=== PATIENT | female | born 1945 | race Caucasian/White ===

== ENCOUNTER 2017-05-23 16:30 | Emergency (ER) | payer MEDICARE, MEDICAID ==
[2017-05-23] MEDS ORDERED: Morphine 2 MG/ML Syringe SUBCUT ONE (16:56)
[2017-05-23] MEDS ORDERED: Morphine 10 MG/ML Syringe ONE (17:03)
[2017-05-23] MEDS ORDERED: Enoxaparin 80 MG/0.8 ML Syringe ONE (18:16)
[2017-05-23 18:40] VITALS: BP 140/90
--- NOTE | 2017-05-24 08:35 | EDM.PDOC ---
ED HPI GENERAL MEDICAL PROBLEM - General Chief Complaint: Chest Pain Stated Complaint: chest pain Time Seen by Provider: 05/23/17 16:30 Source of Information: Reports: Long Term Records, RN, Significant Other, Other ([facility], [place] staff) History Limitations: Reports: Language Barrier, Physical Impairment. Denies: Altered Mental Status - History of Present Illness INITIAL COMMENTS - FREE TEXT/NARRATIVE: This 72 yr female presents with Iraidast[employer] scientist from [facility]. Staff states pt became anxious around 3:30. Pt was given oxycodone and Maalox to comfort pt. Pt pointing and nodding head to pain to left chest and to left leg. She has a hx of left sided affected CVA and she doesn't speak, but can nod in agreement. She is breathing rapidly and appears anxious, intermittently. Consulted with Dr Quintana at 1715. Reviewed results of EKG and symptoms with chest pain and anxiety and right leg pain. Order for MS 4 mg Sq. 1740 Reviewed lab results with Dr Quintana. Order for angio CT for possible r/o PE. Staff unable to get #18 IV in for administration of contrast. Order cancelled. Order for bilateral doppler U/A of lower legs. Begin Lovenox 80 mg sq bid. Recommend use of heat to chest 3x/day for costochondritis. present in ER and results reviewed with him and reviewed pt symptoms. in agreement to plan of care. 1800 Transfer pt to [facility] for continued care in home environment. Continue present medications. Onset: Today Onset Date: 05/23/17 Onset Time: 15:30 Duration: Getting Worse, Intermittent Location: Reports: Chest, Lower Extremity, Right Quality: Reports: Other (Unable to differentiate description of pain related to pt, unable to communicate in words) Improves with: Reports: Medication Associated Symptoms: Denies: Fever/Chills, Nausea/Vomiting, Rash Treatments MANAGER OF COMPENSATION: Reports: Other Medication(s) - Related Data Allergies Allergy/AdvReac Type Severity Reaction Status Date / Time No Known Allergies Allergy Verified 02/14/16 00:41 Home Meds: Home Meds Docusate Sodium [Silace] 25 ml NGTUBE BID 02/14/16 [History] Esomeprazole [NexIUM] 40 mg NGTUBE ONETIME 02/14/16 [History] FLUoxetine HCl [Fluoxetine HCl] 40 mg NGTUBE DAILY 02/14/16 [History] Furosemide 40 ng PO DAILY 02/14/16 [History] Gabapentin 200 mg PO BID 02/14/16 [History] Gabapentin 400 mg NGTUBE BEDTIME 02/14/16 [History] LORazepam [Ativan] 0.5 mg NGTUBE TID 02/14/16 [History] Melatonin 3 mg NGTUBE BEDTIME 02/14/16 [History] OLANZapine [Zyprexa] 20 mg NGTUBE DAILY 02/14/16 [History] Penicillin V Potassium 500 mg NGTUBE BID 02/14/16 [History] Potassium Chloride 20 meq NGTUBE DAILY 02/14/16 [History] Sulfamethoxazole/Trimethoprim [Sulfamethoxazole-Tmp Ds Tablet] 1 tab NGTUBE BID 02/14/16 [History] Vitamin A 10,000 units NGTUBE DAILY 02/14/16 [History] fentaNYL [Duragesic] 75 mcg TRDERM Q72H 02/14/16 [History] oxyCODONE 10 mg NGTUBE Q4H PRN 02/14/16 [History] rOPINIRole [Requip] 2 mg NGTUBE TID 02/14/16 [History] Past Medical History Respiratory History: Reports: Pneumonia, Recurrent Gastrointestinal History: Reports: None Genitourinary History: Reports: Chronic Renal Insuffiency, UTI, Recurrent, Other (See Below) Other Genitourinary History: aguilar catheter in place Neurological History: Reports: CVA - Past Surgical History GI Surgical History: Reports: Other (See Below) Social & Family History - Tobacco Use Smoking Status *Q: Never Smoker Used Tobacco, but Quit: No Second Hand Smoke Exposure: No - Recreational Drug Use Recreational Drug Use: No ED ROS GENERAL - Review of Systems Review Of Systems: See Below Constitutional: Reports: Fever, Chills Cardiovascular: Reports: Chest Pain GI/Abdominal: Reports: No Symptoms : Reports: Other (aguilar catheter) Musculoskeletal: Reports: Leg Pain, Muscle Pain, Other (bedridden) Skin: Reports: Other (Skin is warm and moist with perspiration to under arms). Denies: Diaphoresis, Erythema, Change in Color Neurological: Reports: Pre-Existing Deficit, Trouble Speaking, Weakness Psychiatric: Reports: Anxiety ED EXAM, GENERAL - Physical Exam Exam: See Below Exam Limited By: No Limitations General Appearance: Alert, No Apparent Distress, Anxious, Mild Distress Ears: Normal External Exam Nose: Normal Inspection Head: Atraumatic Neck: Supple, Non-Tender Respiratory/Chest: Normal Breath Sounds, Other (Tachypneic, pain to 3rd and 4th left intercostal space with deep palpation). No: Crackles, Rales Cardiovascular: Tachycardia, Extra Beats GI/Abdominal: Soft Extremities: Limited Range of Motion, Other (posturing with bedridden) Neurological: Alert Psychiatric: Anxious Skin Exam: Warm, Normal Color. No: Diaphoretic EKG INTERPRETATION EKG Date: 05/23/17 Rhythm: Other (sinus tachycardia with PAC.) Rate (Beats/Min): 120 Comparison: NA - No Prior EKG EKG Interpretation Comments: Initial report shows anterolateral infarct. Reviewed EKG with Dr Quintana. States no ST elevation to anterior leads. States pain is related to costochondritis. Course - Vital Signs Last Recorded V/S: Last Vital Signs Temp 98 F 05/23/17 17:15 Pulse 110 H 05/23/17 17:15 Resp 16 05/23/17 17:15 BP 140/90 05/23/17 17:15 Pulse Ox 100 05/23/17 17:00 - Orders/Labs/Meds Orders: Active Orders 24 hr Category Date Time Status EKG Documentation Completion [RC] ASDIRECTED Care 05/23/17 16:40 Active Oxygen Therapy [RC] ASDIRECTED Care 05/23/17 16:30 Active Ready for Discharge [RC] PER UNIT ROUTINE Care 05/23/17 18:00 Active Labs: Laboratory Tests 05/23/17 05/23/17 05/23/17 Range/Units 16:50 16:50 16:50 WBC 6.6 (4.0-11.0) K/uL RBC 4.69 (3.80-5.80) M/uL Hgb 13.2 (11.5-16.5) g/dL Hct 40.3 (37.0-47.0) % MCV 86 (76-96) fL MCH 28.1 (27.0-32.0) pg MCHC 32.8 (31.0-35.0) g/dL RDW 13.2 (11.0-16.0) % Plt Count 352 D (150-500) K/uL MPV 9.3 (6.0-10.0) fL Neut % (Auto) 82.8 H (45.0-70.0) % Lymph % (Auto) 8.9 L (20.0-40.0) % Clare % (Auto) 8.3 (3.0-10.0) % Eos % (Auto) 0.0 L (1.0-5.0) % Baso % (Auto) 0.0 (0.0-0.5) % Neut # (Auto) 5.46 (2.00-7.50) K/uL Lymph # (Auto) 0.59 L (1.50-4.00) K/uL Clare # (Auto) 0.55 (0.20-0.80) K/uL Eos # (Auto) 0.00 L (0.04-0.40) K/uL Baso # (Auto) 0.00 L (0.02-0.10) K/uL PT (9.0-11.5) sec INR (1.0-3.5) APTT (27.0-35.0) SECONDS D-Dimer, Quantitative (0-400) ng/mL Sodium 139 (136-145) mmol/L Potassium 3.8 (3.5-5.1) mmol/L Chloride 101 (98-107) mmol/L Carbon Dioxide 27.8 (21.0-32.0) mmol/L Anion Gap 14.0 (5.0-15.0) mmol/L BUN 46 H D (8-26) mg/dL Creatinine 1.07 H (0.55-1.02) mg/dL Est Cr Clr Drug Dosing TNP Estimated GFR (MDRD) 50 L (>60) MLS/MIN BUN/Creatinine Ratio 43.0 H (6-25) Glucose 207 H D (74-100) mg/dL Calcium 9.3 (8.5-10.1) mg/dL Total Bilirubin 0.4 D (0.0-1.0) mg/dL AST 17 (15-37) U/L ALT 7 L (12-78) U/L Alkaline Phosphatase 141 H (46-116) U/L Troponin I 0.032 (0.000-0.060) ng/mL Total Protein 8.4 H (6.4-8.2) g/dL Albumin 2.8 L (3.4-5.0) g/dL Globulin 5.6 H (2.2-4.2) g/dL Albumin/Globulin Ratio 0.5 L (0.8-2.0) 05/23/17 05/23/17 Range/Units 16:50 16:55 WBC (4.0-11.0) K/uL RBC (3.80-5.80) M/uL Hgb (11.5-16.5) g/dL Hct (37.0-47.0) % MCV (76-96) fL MCH (27.0-32.0) pg MCHC (31.0-35.0) g/dL RDW (11.0-16.0) % Plt Count (150-500) K/uL MPV (6.0-10.0) fL Neut % (Auto) (45.0-70.0) % Lymph % (Auto) (20.0-40.0) % Clare % (Auto) (3.0-10.0) % Eos % (Auto) (1.0-5.0) % Baso % (Auto) (0.0-0.5) % Neut # (Auto) (2.00-7.50) K/uL Lymph # (Auto) (1.50-4.00) K/uL Clare # (Auto) (0.20-0.80) K/uL Eos # (Auto) (0.04-0.40) K/uL Baso # (Auto) (0.02-0.10) K/uL PT 9.5 D (9.0-11.5) sec INR 1.0 D (1.0-3.5) APTT 29.0 (27.0-35.0) SECONDS D-Dimer, Quantitative 2550 H (0-400) ng/mL Sodium (136-145) mmol/L Potassium (3.5-5.1) mmol/L Chloride (98-107) mmol/L Carbon Dioxide (21.0-32.0) mmol/L Anion Gap (5.0-15.0) mmol/L BUN (8-26) mg/dL Creatinine (0.55-1.02) mg/dL Est Cr Clr Drug Dosing Estimated GFR (MDRD) (>60) MLS/MIN BUN/Creatinine Ratio (6-25) Glucose (74-100) mg/dL Calcium (8.5-10.1) mg/dL Total Bilirubin (0.0-1.0) mg/dL AST (15-37) U/L ALT (12-78) U/L Alkaline Phosphatase (46-116) U/L Troponin I (0.000-0.060) ng/mL Total Protein (6.4-8.2) g/dL Albumin (3.4-5.0) g/dL Globulin (2.2-4.2) g/dL Albumin/Globulin Ratio (0.8-2.0) Meds: Medications Discontinued Medications Generic Name Dose Route Start Last Admin Trade Name Freq PRN Reason Stop Dose Admin Enoxaparin Sodium Confirm 05/23/17 18:16 05/23/17 18:25 Lovenox Administered 05/23/17 18:17 Not Given Dose 80 mg .ROUTE .STK-MED ONE Morphine Sulfate 4 mg 05/23/17 16:56 05/23/17 18:26 Morphine SUBCUT 05/23/17 16:57 4 mg ONETIME ONE Administration Morphine Sulfate Confirm 05/23/17 17:03 Morphine Administered 05/23/17 17:04 Dose 10 mg .ROUTE .STK-MED ONE - Re-Assessments/Exams Free Text/Narrative Re-Assessment/Exam: EKG and labs completed and reviewed with . Ordered angio-CT to rule out PE. Unable to obtain #18 IC to antecubital for this. Will obtain bilateral, lower extremity U/S, doppler to differentiate possible DVT as D-dimer is elevated. Will start Lovenox Sq bid. Orders place in moth exterminator care chart for this. MS 4 mg sq for pt pain and anxiety given with relief noted and pt resting well. states understanding and is in agreement with plan of care. 05/24/17 08:47 Departure - Departure Time of Disposition: 18:00 Disposition: DC/Tfer to SNF 03 Reason for Transfer *Q: Other (transfer to fpc care facility/pt home) Condition: Fair Clinical Impression: Acute costochondritis, Atypical chest pain Instructions: Costochondritis, [id number], How and Where to Give Subcutaneous Enoxaparin Injections, Deep Vein Thrombosis Referrals: PCP,Unknown [Primary Care Provider] - Forms: ED Department Discharge Care Plan Goals: Since unable to do a CT angiogram due to inability to access a vein she will get Lovenox 80 mg bid. Schedule for lower extremity doppler study on . 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
== END 2017-05-23 18:20 ==
LOC: LB.ED 16:30
DX: M94.0 Chondrocostal junction syndrome [Tietze] (principal); R07.1 Chest pain on breathing; N18.9 Chronic kidney disease, unspecified; Z86.73 Personal history of transient ischemic attack (TIA), and cerebral infarction without residual deficits; Z79.84 Long term (current) use of oral hypoglycemic drugs; Z79.891 Long term (current) use of opiate analgesic; Z87.01 Personal history of pneumonia (recurrent); Z87.440 Personal history of urinary (tract) infections
CPT/HCPCS: 36415; 80053; 84484; 85025; 85379; 85610; 85730; 93005; 96372; 99284; J2270

== ENCOUNTER 2019-01-16 10:47 | Emergency (ER) | payer MEDICARE, MEDICAID ==
[2019-01-16 11:12] VITALS: BP 148/95
[2019-01-16] MEDS: diazePAM 5 MG/ML MDV IV ONE (11:27)
[2019-01-16] MEDS: diazePAM 5 MG/ML MDV ONE (11:58)
[2019-01-16] MEDS ORDERED: D5 1/2 NS w/ 10 mEq/L KCl 1,000 ML IV SCH (12:00)
--- NOTE | 2019-01-16 12:01 | EDM.PDOC ---
ED HPI GENERAL MEDICAL PROBLEM - General Chief Complaint: General Stated Complaint: Muscle Cramps Time Seen by Provider: 01/16/19 11:00 Source of Information: Reports: Patient History Limitations: Reports: No Limitations - History of Present Illness INITIAL COMMENTS - FREE TEXT/NARRATIVE: This is a 73yo F here for muscle spasms of the right side. She states her left groin and hip area are extremely painful from cramping. She has left elbow and forearm pain and cramping as well. The cramping started today and has worsened. Onset: Gradual Duration: Hour(s):, Getting Worse Location: Reports: Upper Extremity, Right, Lower Extremity, Right Quality: Reports: Ache Severity: Severe Improves with: Reports: None Worsens with: Reports: Movement Treatments AUTOMATIC CIGAR WRAPPER TENDER: Reports: Other (see below) Other Treatments AUTOMATIC CIGAR WRAPPER TENDER: oxycodone; patch change today - Related Data Allergies Allergy/AdvReac Type Severity Reaction Status Date / Time latex Allergy Cannot Verified 01/16/19 11:54 Remember adhesive tape AdvReac Rash Verified 01/16/19 11:54 Home Meds: Home Meds FLUoxetine HCl [Fluoxetine HCl] 20 mg GTUBE DAILY 02/14/16 [History] Furosemide 40 mg GTUBE DAILY 02/14/16 [History] Gabapentin 4 ml GTUBE BID@0800,1200 02/14/16 [History] Gabapentin 8 ml GTUBE BEDTIME 02/14/16 [History] Melatonin 6 mg GTUBE BEDTIME 02/14/16 [History] Potassium Chloride 20 meq GTUBE DAILY 02/14/16 [History] Vitamin A 10,000 units GTUBE DAILY 02/14/16 [History] oxyCODONE 10 mg GTUBE Q4H PRN 02/14/16 [History] rOPINIRole [Requip] 2 mg GTUBE TID 02/14/16 [History] Acetaminophen [Tylenol] 650 mg GTUBE Q4HR PRN 10/19/18 [History] Albuterol/Ipratropium [DuoNeb 3.0-0.5 MG/3 ML] 3 ml INH Q6HR PRN 10/19/18 [ History] Guar Gum [Benefiber] 0.4 gm GTUBE DAILY@1800 10/19/18 [History] Lactulose 10 gm GTUBE TID 10/19/18 [History] Magnesium Hydroxide [Milk of Magnesia] 30 ml GTUBE DAILY PRN 10/19/18 [History] Mupirocin Cream [Bactroban Crm] 1 applic TOP TID 10/19/18 [History] Omeprazole 10 mg GTUBE ACBREAKFAST 10/19/18 [History] Polyethylene Glycol 3350 [MiraLAX] 17 gm GTUBE DAILY PRN 10/19/18 [History] Sennosides [Senokot] 8.6 mg GTUBE DAILY PRN 10/19/18 [History] fentaNYL [Duragesic] 100 mcg TOP Q72H 10/19/18 [History] oxyCODONE 10 mg GTUBE DAILY 10/19/18 [History] Past Medical History Cardiovascular History: Reports: Heart Failure, High Cholesterol, Hypertension Respiratory History: Reports: Asthma, Pneumonia, Recurrent Gastrointestinal History: Reports: Chronic Constipation, Gastritis, GERD Genitourinary History: Reports: Chronic Renal Insuffiency, UTI, Recurrent Other Genitourinary History: aguilar catheter in place Musculoskeletal History: Reports: Other (See Below) Other Musculoskeletal History: chronic pain Neurological History: Reports: CVA, TIA, Other (See Below) Other Neuro History: expressive aphasia Psychiatric History: Reports: Depression, Other (See Below) Other Psychiatric History: unspecified sleep disorder Dermatologic History: Reports: Decubitus Ulcer - Past Surgical History Respiratory Surgical History: Reports: None GI Surgical History: Reports: Other (See Below) Other GI Surgeries/Procedures: G-tibe placement Female Surgical History: Reports: None Neurological Surgical History: Reports: None Musculoskeletal Surgical History: Reports: None Dermatological Surgical History: Reports: None Social & Family History - Family History Family Medical History: Noncontributory - Caffeine Use Caffeine Use: Reports: None ED ROS GENERAL - Review of Systems Review Of Systems: ROS reveals no pertinent complaints other than HPI. ED EXAM, GENERAL - Physical Exam Exam: See Below Exam Limited By: No Limitations General Appearance: Alert, WD/WN, Moderate Distress Eye Exam: Bilateral Eye: EOMI, PERRL Ears: Normal External Exam Nose: Normal Inspection Throat/Mouth: Normal Inspection Head: Atraumatic, Normocephalic Neck: Normal Inspection Respiratory/Chest: No Respiratory Distress, Lungs Clear Cardiovascular: Normal Peripheral Pulses, Regular Rate, Rhythm Peripheral Pulses: 2+: Dorsalis Pedis (L), Dorsalis Pedis (R) GI/Abdominal: Normal Bowel Sounds Extremities: Normal Inspection Neurological: Alert, Oriented Psychiatric: Normal Affect, Normal Mood Skin Exam: Warm, Dry, Intact Course - Vital Signs Last Recorded V/S: Last Vital Signs Temp 37.5 C 01/16/19 10:55 Pulse 83 01/16/19 14:34 Resp 18 01/16/19 14:34 BP 148/95 H 01/16/19 10:55 Pulse Ox 93 L 01/16/19 14:34 - Orders/Labs/Meds Labs: Laboratory Tests 01/16/19 Range/Units 08:55 Magnesium 2.4 (1.8-2.4) mg/dL Meds: Medications Discontinued Medications Generic Name Dose Route Start Last Admin Trade Name Tomq PRN Reason Stop Dose Admin Diazepam Confirm 01/16/19 11:32 01/16/19 11:58 Valium Administered 01/16/19 11:33 Not Given Dose 5 mg .ROUTE .STK-MED ONE Diazepam 5 mg 01/16/19 11:51 01/16/19 11:27 Valium IV 01/16/19 11:52 5 mg ONETIME ONE Administration Hydromorphone HCl 1 mg 01/16/19 13:08 01/16/19 13:17 Dilaudid IVPUSH 01/16/19 13:09 1 mg ONETIME ONE Administration Hydromorphone HCl Confirm 01/16/19 13:23 01/16/19 13:21 Dilaudid Administered 01/16/19 13:24 Not Given Dose 2 mg .ROUTE .STK-MED ONE Potassium Chloride/Dextrose/Sod Cl 1,000 mls @ 150 mls/hr 01/16/19 12:00 D5 1/2 Ns W/ 10 Meq/L Kcl IV ASDIRECTED BELL Potassium Chloride/Dextrose/Sod Cl 1,000 mls @ 150 mls/hr 01/16/19 12:15 12:23 D5 1/2 Ns W/ 20 Meq/L Kcl IV 150 mls/hr ASDIRECTED BELL Administration Ketorolac Tromethamine 30 mg 01/16/19 12:00 01/16/19 12:02 Toradol IVPUSH 01/16/19 12:01 30 mg ONETIME ONE Administration Ketorolac Tromethamine Confirm 01/16/19 12:08 01/16/19 12:11 Toradol Administered 01/16/19 12:09 Not Given Dose 30 mg .ROUTE .STK-MED ONE Lorazepam 2 mg 01/16/19 14:03 01/16/19 14:07 Ativan IVPUSH 01/16/19 14:04 2 mg ONETIME ONE Administration Lorazepam Confirm 01/16/19 14:11 01/16/19 14:18 Ativan Administered 01/16/19 14:12 Not Given Dose 2 mg .ROUTE .STK-MED ONE Departure - Departure Time of Disposition: 14:30 Disposition: Home, Self-Care 01 Condition: Good Clinical Impression: Muscle cramping - Discharge Information Instructions: Muscle Cramps and Spasms, Methocarbamol tablets Referrals: PCP,None [Primary Care Provider] - Forms: ED Department Discharge Additional Instructions: Take Methocarbamol 750mg four times a day for muscle spasms. May start first dose tonight. Follow up with Dr. Diane tomorrow to let him know how things are going and how the pain is. Monitor for signs and symptoms of pneumonia as she will most likely be sleepy throughout the day. - Problem List & Annotations (1) Muscle cramping SNOMED Code(s): 96969810 Code(s): R25.2 - CRAMP AND SPASM Status: Acute Priority: High - Problem List Review Problem List Initiated/Reviewed/Updated: Yes - Assessment/Plan Plan: Counseled on supportive care and management. Discussed scheduled muscle relaxants and discussed side effects of drowsiness and sleepiness. Patient and understand side effects and would like a scheduled muscle relaxant. We will reassess for further pain management in the next few days.
[2019-01-16] MEDS: Ketorolac 30 MG/ML SDV IVPUSH ONE (12:02)
[2019-01-16] MEDS: Ketorolac 30 MG/ML SDV ONE (12:11)
[2019-01-16] MEDS: D5 1/2 NS w/ 20 mEq/L KCl 1,000 ML IV SCH (12:23)
[2019-01-16] MEDS: HYDROmorphone 2 MG/ML SDV IVPUSH ONE (13:17)
[2019-01-16] MEDS: HYDROmorphone 2 MG/ML Syringe ONE (13:21)
[2019-01-16] MEDS: LORazepam 2 MG/ML SDV IVPUSH ONE (14:07)
[2019-01-16] MEDS: LORazepam 2 MG/ML SDV ONE (14:18)
== END 2019-01-16 14:45 | disposition home or self-care (01) ==
LOC: LB.ED 10:47
DX: R25.2 Cramp and spasm (principal); I13.0 Hypertensive heart and chronic kidney disease with heart failure and stage 1 through stage 4 chronic kidney disease, or unspecified chronic kidney disease; I50.9 Heart failure, unspecified; N18.9 Chronic kidney disease, unspecified; E78.00 Pure hypercholesterolemia, unspecified; J45.909 Unspecified asthma, uncomplicated; F32.9 Major depressive disorder, single episode, unspecified; Z88.8 Allergy status to other drugs, medicaments and biological substances; Z91.040 Latex allergy status; Z79.899 Other long term (current) drug therapy
CPT/HCPCS: 36415; 83735; 96361; 96374; 96375; 99283-25; A9270-GY; J1170; J1885; J2060; J3480

== ENCOUNTER 2019-01-21 05:35 | Emergency (ER) | payer MEDICARE, MEDICAID ==
[2019-01-21] MEDS ORDERED: HYDROmorphone 2 MG/ML Syringe SUBCUT ONE (06:01)
[2019-01-21 06:28] VITALS: BP 133/82
--- NOTE | 2019-01-24 13:38 | EDM.PDOC ---
ED HPI GENERAL MEDICAL PROBLEM - General Chief Complaint: Lower Extremity Injury/Pain Stated Complaint: RIGHT LEG CRAMPING Time Seen by Provider: 01/21/19 05:45 Source of Information: Reports: Patient History Limitations: Reports: No Limitations - History of Present Illness INITIAL COMMENTS - FREE TEXT/NARRATIVE: Pt is a s/p CVA, resident of the [facility] who present to emergency room with c/o pain leg cramps. Pt keeps screaming " help me". She claims her " legs hurt". No swelling of the legs. No redness. No fall or injury. Pt was seen 5 days ago for same reason by Dr. Diane and she had received Dilaudid 1mg Im and started on oral Robaxin for leg spasms.. Pt claims the injection helped. Patient is asking for the shot. Onset: Today Location: Reports: Lower Extremity, Left, Lower Extremity, Right Quality: Reports: Ache Severity: Moderate Improves with: Reports: None Worsens with: Reports: None Associated Symptoms: Denies: Fever/Chills, Rash, Seizure - Related Data Allergies Allergy/AdvReac Type Severity Reaction Status Date / Time latex Allergy Cannot Verified 01/21/19 05:41 Remember adhesive tape AdvReac Rash Verified 01/21/19 05:41 Home Meds: Home Meds FLUoxetine HCl [Fluoxetine HCl] 20 mg GTUBE DAILY 02/14/16 [History] Furosemide 40 mg GTUBE DAILY 02/14/16 [History] Gabapentin 4 ml GTUBE BID@0800,1200 02/14/16 [History] Gabapentin 8 ml GTUBE BEDTIME 02/14/16 [History] Melatonin 6 mg GTUBE BEDTIME 02/14/16 [History] Potassium Chloride 20 meq GTUBE DAILY 02/14/16 [History] Vitamin A 10,000 units GTUBE DAILY 02/14/16 [History] oxyCODONE 10 mg GTUBE Q4H PRN 02/14/16 [History] rOPINIRole [Requip] 2 mg GTUBE TID 02/14/16 [History] Acetaminophen [Tylenol] 650 mg GTUBE Q4HR PRN 10/19/18 [History] Albuterol/Ipratropium [DuoNeb 3.0-0.5 MG/3 ML] 3 ml INH Q6HR PRN 10/19/18 [ History] Guar Gum [Benefiber] 0.4 gm GTUBE DAILY@1800 10/19/18 [History] Lactulose 10 gm GTUBE TID 10/19/18 [History] Magnesium Hydroxide [Milk of Magnesia] 30 ml GTUBE DAILY PRN 10/19/18 [History] Mupirocin Cream [Bactroban Crm] 1 applic TOP TID 10/19/18 [History] Omeprazole 10 mg GTUBE ACBREAKFAST 10/19/18 [History] Polyethylene Glycol 3350 [MiraLAX] 17 gm GTUBE DAILY PRN 10/19/18 [History] Sennosides [Senokot] 8.6 mg GTUBE DAILY PRN 10/19/18 [History] fentaNYL [Duragesic] 100 mcg TOP Q72H 10/19/18 [History] oxyCODONE 10 mg GTUBE DAILY 10/19/18 [History] Past Medical History Cardiovascular History: Reports: Heart Failure, High Cholesterol, Hypertension Respiratory History: Reports: Asthma, Pneumonia, Recurrent Gastrointestinal History: Reports: Chronic Constipation, Gastritis, GERD Genitourinary History: Reports: Chronic Renal Insuffiency, UTI, Recurrent Other Genitourinary History: aguilar catheter in place Musculoskeletal History: Reports: Other (See Below) Other Musculoskeletal History: chronic pain Neurological History: Reports: CVA, TIA, Other (See Below) Other Neuro History: expressive aphasia Psychiatric History: Reports: Depression, Other (See Below) Other Psychiatric History: unspecified sleep disorder Dermatologic History: Reports: Decubitus Ulcer - Past Surgical History Respiratory Surgical History: Reports: None GI Surgical History: Reports: Other (See Below) Other GI Surgeries/Procedures: G-tibe placement Female Surgical History: Reports: None Neurological Surgical History: Reports: None Musculoskeletal Surgical History: Reports: None Dermatological Surgical History: Reports: None Social & Family History - Family History Family Medical History: Noncontributory - Caffeine Use Caffeine Use: Reports: None ED ROS GENERAL - Review of Systems Review Of Systems: Unable To Obtain (due to CVA) ED EXAM, GENERAL - Physical Exam Exam: See Below Exam Limited By: No Limitations General Appearance: Alert, WD/WN, Mild Distress, Other (pt screams and hauls " help me" " leg hurt") Eye Exam: Bilateral Eye: EOMI, PERRL Ears: Normal External Exam, Normal Canal, Hearing Grossly Normal, Normal TMs Ear Exam: Bilateral Ear: Auricle Normal, Canal Normal, TM normal Nose: Normal Inspection, Normal Mucosa, No Blood Throat/Mouth: Normal Inspection, Normal Lips, Normal Teeth, Normal Gums, Normal Oropharynx, Normal Voice, No Airway Compromise Head: Atraumatic, Normocephalic Neck: Normal Inspection Respiratory/Chest: No Respiratory Distress, Lungs Clear, Normal Breath Sounds, No Accessory Muscle Use, Chest Non-Tender Cardiovascular: Normal Peripheral Pulses, Regular Rate, Rhythm, No Edema, No Gallop, No JVD, No Murmur, No Rub Extremities: Normal Inspection, Normal Range of Motion, Non-Tender, No Pedal Edema, Normal Capillary Refill. No: Liz's Sign, Leg Pain Neurological: Other (post CVA deficits. No acute deficit noted) Course - Vital Signs Text/Narrative:: Pt's clinical exam is normal.She does have chronic neurological deficits, but no acute changes. No tenderness of the legs. No redness or swelling. It does appear like leg cramps . She did receive dilaudid 1mg Im, and her pain improved. I have placed her on Requip BID for cramps, advised to continue Robaxin. IF the cramps persists might need further workup. Pt transferred back to Care center. Last Recorded V/S: Last Vital Signs Temp 98.8 F 01/21/19 05:35 Pulse 94 01/21/19 06:10 Resp BP 133/82 01/21/19 06:10 Pulse Ox 97 01/21/19 05:35 - Orders/Labs/Meds Meds: Medications Discontinued Medications Generic Name Dose Route Start Last Admin Trade Name Cm PRN Reason Stop Dose Admin Hydromorphone HCl 1 mg 01/21/19 06:01 01/21/19 06:05 Dilaudid SUBCUT 01/21/19 06:02 1 mg Q2H ONE Administration Departure - Departure Time of Disposition: 06:00 Disposition: Home, Self-Care 01 Condition: Fair Clinical Impression: Leg cramps - Discharge Information Forms: ED Department Discharge Additional Instructions: Start Requip today, 0.25mg PO BID for a week then increase the dose to 0.5mg BID. She can also have the PRN oxycodone as well if she is in pain. - Problem List & Annotations (1) Leg cramps SNOMED Code(s): 979614175 Code(s): R25.2 - CRAMP AND SPASM Status: Acute - Problem List Review Problem List Initiated/Reviewed/Updated: Yes - Assessment/Plan Assessment:: leg cramps Plan: Pt's clinical exam is normal.She does have chronic neurological deficits, but no acute changes. No tenderness of the legs. No redness or swelling. It does appear like leg cramps . She did receive dilaudid 1mg Im, and her pain improved. I have placed her on Requip BID for cramps, advised to continue Robaxin. IF the cramps persists might need further workup. Pt transferred back to Care center.
== END 2019-01-21 06:10 | disposition home or self-care (01) ==
LOC: LB.ED 05:35
DX: R25.2 Cramp and spasm (principal); I50.9 Heart failure, unspecified; I13.0 Hypertensive heart and chronic kidney disease with heart failure and stage 1 through stage 4 chronic kidney disease, or unspecified chronic kidney disease; N18.9 Chronic kidney disease, unspecified; F32.9 Major depressive disorder, single episode, unspecified; Z91.040 Latex allergy status; Z79.899 Other long term (current) drug therapy
CPT/HCPCS: 96372; 99283; J1170

== ENCOUNTER → 2019-09-05 | Outpatient (CLI) | payer MEDICARE, MEDICAID | LOC: LB.CC 12:55 | PROVIDERS: ATTEND Family Medicine | DX: I10 Essential (primary) hypertension (principal) | CPT/HCPCS: 36415; 84132 ==

== ENCOUNTER 2019-11-28 13:06 | Observation (INO) | payer MEDICARE, MEDICAID ==
[2019-11-28] MEDS ORDERED: diazePAM 5 MG/ML MDV IV ONE (13:41)
[2019-11-28] MEDS ORDERED: diazePAM 5 MG/ML MDV ONE (13:56)
--- NOTE | 2019-11-28 16:12 | EDM.PDOC ---
ED HPI GENERAL MEDICAL PROBLEM - General Chief Complaint: General Stated Complaint: PAIN Time Seen by Provider: 11/28/19 15:00 Source of Information: Reports: Patient, Prison Records History Limitations: Reports: No Limitations - History of Present Illness INITIAL COMMENTS - FREE TEXT/NARRATIVE: This is a 74yo F here from the [facility] for spasms, pain and confusion. She is not able to speak as well and unable to describe her symptoms. 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 Staff report that patient Onset: Unknown/Unsure Duration: Waxing/Waning Location: Reports: Generalized Associated Symptoms: Reports: Confusion, Weakness - Related Data Allergies Allergy/AdvReac Type Severity Reaction Status Date / Time latex Allergy Cannot Verified 01/21/19 05:41 Remember adhesive tape AdvReac Rash Verified 01/21/19 05:41 Home Meds: Home Meds FLUoxetine HCl [Fluoxetine HCl] 20 mg GTUBE DAILY 02/14/16 [History] Furosemide 40 mg GTUBE DAILY 02/14/16 [History] Gabapentin 4 ml GTUBE BID@0800,1200 02/14/16 [History] Gabapentin 8 ml GTUBE BEDTIME 02/14/16 [History] Melatonin 6 mg GTUBE BEDTIME 02/14/16 [History] Potassium Chloride 20 meq GTUBE DAILY 02/14/16 [History] Vitamin A 10,000 units GTUBE DAILY 02/14/16 [History] oxyCODONE 10 mg GTUBE Q4H PRN 02/14/16 [History] rOPINIRole [Requip] 2 mg GTUBE TID 02/14/16 [History] Acetaminophen [Tylenol] 650 mg GTUBE Q4HR PRN 10/19/18 [History] Albuterol/Ipratropium [DuoNeb 3.0-0.5 MG/3 ML] 3 ml INH Q6HR PRN 10/19/18 [ History] Guar Gum [Benefiber] 0.4 gm GTUBE DAILY@1800 10/19/18 [History] Lactulose 10 gm GTUBE TID 10/19/18 [History] Magnesium Hydroxide [Milk of Magnesia] 30 ml GTUBE DAILY PRN 10/19/18 [History] Mupirocin Cream [Bactroban Crm] 1 applic TOP TID 10/19/18 [History] Omeprazole 10 mg GTUBE ACBREAKFAST 10/19/18 [History] Sennosides [Senokot] 8.6 mg GTUBE DAILY PRN 10/19/18 [History] fentaNYL [Duragesic] 100 mcg TOP Q72H 10/19/18 [History] oxyCODONE 10 mg GTUBE DAILY 10/19/18 [History] polyethylene glycoL 3350 [MiraLAX] 17 gm GTUBE DAILY PRN 10/19/18 [History] Past Medical History Cardiovascular History: Reports: Heart Failure, High Cholesterol, Hypertension Respiratory History: Reports: Asthma, Pneumonia, Recurrent Gastrointestinal History: Reports: Chronic Constipation, Gastritis, GERD Genitourinary History: Reports: Chronic Renal Insuffiency, UTI, Recurrent Other Genitourinary History: aguilar catheter in place Musculoskeletal History: Reports: Other (See Below) Other Musculoskeletal History: chronic pain Neurological History: Reports: CVA, TIA, Other (See Below) Other Neuro History: expressive aphasia Psychiatric History: Reports: Depression, Other (See Below) Other Psychiatric History: unspecified sleep disorder Dermatologic History: Reports: Decubitus Ulcer - Past Surgical History Respiratory Surgical History: Reports: None GI Surgical History: Reports: Other (See Below) Other GI Surgeries/Procedures: G-tibe placement Female Surgical History: Reports: None Neurological Surgical History: Reports: None Musculoskeletal Surgical History: Reports: None Dermatological Surgical History: Reports: None Social & Family History - Family History Family Medical History: Noncontributory - Caffeine Use Caffeine Use: Reports: None ED ROS GENERAL - Review of Systems Review Of Systems: Comprehensive ROS is negative, except as noted in HPI. ED EXAM, GENERAL - Physical Exam Exam: See Below Exam Limited By: No Limitations Eye Exam: Bilateral Eye: PERRL Ears: Normal External Exam Nose: Normal Inspection Throat/Mouth: Normal Inspection Head: Atraumatic, Normocephalic Neck: Normal Inspection Respiratory/Chest: No Respiratory Distress, Lungs Clear Cardiovascular: Normal Peripheral Pulses, Regular Rate, Rhythm GI/Abdominal: Normal Bowel Sounds Extremities: Other (contractures of the left hand and left foot) Neurological: Confused, Disoriented, Slow to Respond Psychiatric: Flat Affect Course - Vital Signs Last Recorded V/S: Last Vital Signs Temp 36.8 C 11/28/19 13:15 Pulse 99 11/28/19 13:15 Resp 20 11/28/19 13:15 BP 152/127 H 11/28/19 13:15 Pulse Ox 98 11/28/19 13:15 - Orders/Labs/Meds Orders: Medication Orders Ceftriaxone Sodium 1 gm/ (Sodium Chloride) 50 mls @ 200 mls/hr IV Q24H [facility] Labs: Laboratory Tests 11/28/19 11/28/19 Range/Units 13:39 13:40 WBC 19.9 H D (4.0-11.0) K/uL RBC 4.78 (3.80-5.80) M/uL Hgb 14.4 (11.5-16.5) g/dL Hct 44.2 (37.0-47.0) % MCV 93 (76-96) fL MCH 30.1 (27.0-32.0) pg MCHC 32.6 (31.0-35.0) g/dL RDW 12.7 (11.0-16.0) % Plt Count 319 D (150-500) K/uL MPV 10.7 H (6.0-10.0) fL Neut % (Auto) 88.8 H (45.0-70.0) % Lymph % (Auto) 4.4 L (20.0-40.0) % [place] % (Auto) 6.6 (3.0-10.0) % Eos % (Auto) 0.1 L (1.0-5.0) % Baso % (Auto) 0.1 (0.0-0.5) % Neut # (Auto) 17.67 H (2.00-7.50) K/uL Lymph # (Auto) 0.87 L (1.50-4.00) K/uL [place] # (Auto) 1.32 H (0.20-0.80) K/uL Eos # (Auto) 0.01 L (0.04-0.40) K/uL Baso # (Auto) 0.01 L (0.02-0.10) K/uL Sodium 141 (136-145) mmol/L Potassium 3.2 L D (3.5-5.1) mmol/L Chloride 101 (98-107) mmol/L Carbon Dioxide 25.9 (21.0-32.0) mmol/L Anion Gap 17.3 H (5.0-15.0) mmol/L BUN 53 H* (8-26) mg/dL Creatinine 1.25 H D (0.55-1.02) mg/dL Est Cr Clr Drug Dosing TNP Estimated GFR (MDRD) 42 L (>60) MLS/MIN BUN/Creatinine Ratio 42.4 H (6-25) Glucose 291 H D (74-100) mg/dL Calcium 9.0 (8.5-10.1) mg/dL Magnesium 2.1 (1.8-2.4) mg/dL Total Bilirubin 0.5 D (0.0-1.0) mg/dL AST 39 H (15-37) U/L ALT 30 (12-78) U/L Alkaline Phosphatase 145 H (46-116) U/L Creatine Kinase 31 (21-232) U/L Total Protein 7.3 (6.4-8.2) g/dL Albumin 3.5 (3.4-5.0) g/dL Globulin 3.8 (2.2-4.2) g/dL Albumin/Globulin Ratio 0.9 (0.8-2.0) Meds: Medications Generic Name Dose Route Start Last Admin Trade Name Freq PRN Reason Stop Dose Admin Ceftriaxone Sodium 1 gm/ 50 mls @ 200 mls/hr 11/28/19 16:15 Sodium Chloride IV Q24H [facility] Discontinued Medications Generic Name Dose Route Start Last Admin Trade Name Freq PRN Reason Stop Dose Admin Diazepam 5 mg 11/28/19 13:41 11/28/19 13:55 Valium IV 11/28/19 13:42 5 mg ONETIME ONE Administration Diazepam Confirm 11/28/19 13:56 11/28/19 14:14 Valium Administered 11/28/19 13:57 Not Given Dose 5 mg .ROUTE .STK-MED ONE Departure - Departure Time of Disposition: 16:30 Disposition: Refer to Observation Condition: Undetermined Clinical Impression: Confusion, Muscle spasm, Palliative care patient Leukocytosis Qualifiers: Leukocytosis type: unspecified Qualified Code(s): D72.829 - Elevated white blood cell count, unspecified - Discharge Information Sepsis Event Note - Evaluation Sepsis Screening Result: No Definite Risk - Focused Exam Vital Signs: Vital Signs Temp Pulse Resp BP Pulse Ox 11/28/19 13:15 36.8 C 99 20 152/127 H 98 Date Exam was Performed: 11/28/19 Time Exam was Performed: 16:48 - Problem List & Annotations (1) Confusion SNOMED Code(s): 963430724 Code(s): R41.0 - DISORIENTATION, UNSPECIFIED Status: Acute Priority: High Current Visit: Yes (2) Leukocytosis SNOMED Code(s): 146117559, 050442593 Code(s): D72.829 - ELEVATED WHITE BLOOD CELL COUNT, UNSPECIFIED Status: Acute Priority: High Current Visit: Yes Qualifiers: Leukocytosis type: unspecified Qualified Code(s): D72.829 - Elevated white blood cell count, unspecified (3) Muscle spasm SNOMED Code(s): 10225756 Code(s): M62.838 - OTHER MUSCLE SPASM Status: Acute Priority: High Current Visit: Yes (4) Palliative care patient SNOMED Code(s): 536263643 Code(s): Z51.5 - ENCOUNTER FOR PALLIATIVE CARE Status: Acute Priority: High Current Visit: Yes - Problem List Review Problem List Initiated/Reviewed/Updated: Yes - Assessment/Plan Plan: Patient to be placed in observation for parenteral antibiotics, repeat labs in am, muscle spasm management, and pain management. My concern is her confusion and weakness which is not her baseline. I am worried of possible early sepsis. We will f/u as needed and in the am.
[2019-11-28] MEDS ORDERED: cefTRIAXone 1 GM in Sodium Chloride 0.9% 50 ML IV SCH (16:15)
[2019-11-28] MEDS ORDERED: Albuterol/Ipratropium 3.0-0.5 MG/3 ML Neb Soln INH PRN (17:38)
[2019-11-28] MEDS ORDERED: Magnesium Hydroxide 400 MG/5 ML Susp 30 ML Cup GTUBE PRN (17:38)
[2019-11-28] MEDS ORDERED: Sennosides 8.6 MG Tab GTUBE PRN (17:38)
[2019-11-28] MEDS ORDERED: Polyethylene Glycol 3350 Powder 17 GM Packet GTUBE PRN (17:38)
[2019-11-28] MEDS ORDERED: Acetaminophen 325 MG Tab GTUBE PRN (17:38)
[2019-11-28] MEDS ORDERED: fentaNYL 100 MCG/HR Transdermal Patch TOP SCH (17:45)
[2019-11-28] MEDS ORDERED: GUAR GUM GTUBE SCH (18:00)
[2019-11-28] MEDS ORDERED: Lactulose Soln 10 GM/15 ML 15 ML UD Cup GTUBE SCH (20:00)
[2019-11-28] MEDS ORDERED: rOPINIRole 2 MG Tab GTUBE SCH (20:00)
[2019-11-28] MEDS ORDERED: GABAPENTIN 250 MG/5 ML GTUBE SCH (20:00)
[2019-11-28] MEDS ORDERED: Melatonin 3 MG Tab GTUBE SCH (20:00)
[2019-11-28] MEDS ORDERED: GABAPENTIN GTUBE SCH (20:00)
[2019-11-28] MEDS: LACTULOSE GTUBE SCH (20:05)
[2019-11-28] MEDS: MUPIROCIN TOP SCH (20:28)
[2019-11-28] MEDS: ROPINIROLE 0.5 MG GTUBE SCH (20:28)
[2019-11-28] MEDS ORDERED: Sodium Chloride 0.9% 1,000 ML IV SCH (21:15)
[2019-11-29] MEDS ORDERED: OMEPRAZOLE 10 MG GTUBE SCH (07:00)
[2019-11-29] MEDS ORDERED: Non-Formulary Medication 1 Each (Omeprazole [Omeprazole] 10 MG) GTUBE SCH (07:00)
[2019-11-29] MEDS ORDERED: Furosemide 40 MG Tab GTUBE SCH (08:00)
[2019-11-29] MEDS ORDERED: Vitamin A 10,000 Unit Cap GTUBE SCH (08:00)
[2019-11-29] MEDS ORDERED: FLUOXETINE HCL 20 MG GTUBE SCH ×2 (08:00)
[2019-11-29] MEDS ORDERED: Potassium Chloride 10% 20 MEQ/15 ML Soln 15 ML UD Cup GTUBE SCH (08:00)
[2019-11-29] MEDS ORDERED: FUROSEMIDE 10 MG/ML GTUBE SCH (08:00)
[2019-11-29] MEDS ORDERED: Dextrose 5%-0.9% NaCl with KCl 1,000 ML IV SCH (08:30)
[2019-11-29] MEDS: POTASSIUM CHLORIDE GTUBE SCH ×2 (08:46→09:07)
[2019-11-29] MEDS: MUPIROCIN TOP SCH (08:51)
[2019-11-29] MEDS: LACTULOSE GTUBE SCH (09:04)
[2019-11-29] MEDS: GABAPENTIN 250 MG/5 ML GTUBE SCH ×2 (09:05→12:30)
[2019-11-29] MEDS: ROPINIROLE 0.5 MG GTUBE SCH (09:07)
--- NOTE | 2019-11-29 10:10 | PCM.DCSUM1 ---
Discharge Summary - Discharge Data Discharge Date: 11/29/19 Discharge Disposition: DC/Tfer to Skilled Nursing [facility] Condition: Fair - Referral to Home Health Primary Care Physician: PCP None - Discharge Diagnosis/Problem(s) (1) Confusion SNOMED Code(s): 706335213 ICD Code: R41.0 - DISORIENTATION, UNSPECIFIED Status: Resolved Priority: High Current Visit: Yes (2) Leukocytosis SNOMED Code(s): 945225647, 437165264 ICD Code: D72.829 - ELEVATED WHITE BLOOD CELL COUNT, UNSPECIFIED Status: Resolved Priority: High Current Visit: Yes Qualifiers: Leukocytosis type: unspecified Qualified Code(s): D72.829 - Elevated white blood cell count, unspecified (3) Muscle spasm SNOMED Code(s): 96374161 ICD Code: M62.838 - OTHER MUSCLE SPASM Status: Resolved Priority: High Current Visit: Yes (4) Palliative care patient SNOMED Code(s): 648129435 ICD Code: Z51.5 - ENCOUNTER FOR PALLIATIVE CARE Status: Chronic Priority : High Current Visit: Yes - Discharge Plan Home Medications: Home Meds FLUoxetine HCl [Fluoxetine HCl] 20 mg GTUBE DAILY 02/14/16 [History] Furosemide 40 mg GTUBE DAILY 02/14/16 [History] Gabapentin 4 ml GTUBE BID@0800,1200 02/14/16 [History] Gabapentin 8 ml GTUBE BEDTIME 02/14/16 [History] Melatonin 6 mg GTUBE BEDTIME 02/14/16 [History] Potassium Chloride 20 meq GTUBE DAILY 02/14/16 [History] Vitamin A 10,000 units GTUBE DAILY 02/14/16 [History] oxyCODONE 10 mg GTUBE Q4H PRN 02/14/16 [History] rOPINIRole [Requip] 2 mg GTUBE TID 02/14/16 [History] Acetaminophen [Tylenol] 650 mg GTUBE Q4HR PRN 10/19/18 [History] Albuterol/Ipratropium [DuoNeb 3.0-0.5 MG/3 ML] 3 ml INH Q6HR PRN 10/19/18 [ History] Lactulose 10 gm GTUBE TID 10/19/18 [History] Magnesium Hydroxide [Milk of Magnesia] 30 ml GTUBE DAILY PRN 10/19/18 [History] Mupirocin Cream [Bactroban Crm] 1 applic TOP TID 10/19/18 [History] Omeprazole 10 mg GTUBE ACBREAKFAST 10/19/18 [History] Sennosides [Senokot] 8.6 mg GTUBE DAILY PRN 10/19/18 [History] fentaNYL [Duragesic] 100 mcg TOP Q72H 10/19/18 [History] oxyCODONE 10 mg GTUBE DAILY 10/19/18 [History] polyethylene glycoL 3350 [MiraLAX] 17 gm GTUBE DAILY PRN 10/19/18 [History] Wheat Dextrin [Benefiber] 1 each PO DAILY@1800 11/28/19 [History] Forms: ED Department Discharge Referrals: PCP,None [Primary Care Provider] - - Discharge Summary/Plan Comment DC Time >30 min.: No Discharge Summary/Plan Comment: Counseled patient and staff on f/u and management. Discussed continued monitoring and rtc or f/u if symptoms return. Discussed likely UTI but possibly another infection. F/u as needed. May return to Care center. - Patient Data Vitals - Most Recent: Last Vital Signs Temp 37.2 C 11/29/19 08:02 Pulse 69 11/29/19 08:02 Resp 16 11/29/19 08:02 BP 139/63 11/29/19 08:02 Pulse Ox 93 L 11/29/19 03:50 Lab Results - Last 24 hrs: Laboratory Results - last 24 hr 11/28/19 11/28/19 11/28/19 Range/Units 13:39 13:40 15:29 WBC 19.9 H D (4.0-11.0) K/uL RBC 4.78 (3.80-5.80) M/uL Hgb 14.4 (11.5-16.5) g/dL Hct 44.2 (37.0-47.0) % MCV 93 (76-96) fL MCH 30.1 (27.0-32.0) pg MCHC 32.6 (31.0-35.0) g/dL RDW 12.7 (11.0-16.0) % Plt Count 319 D (150-500) K/uL MPV 10.7 H (6.0-10.0) fL Neut % (Auto) 88.8 H (45.0-70.0) % Lymph % (Auto) 4.4 L (20.0-40.0) % [place] % (Auto) 6.6 (3.0-10.0) % Eos % (Auto) 0.1 L (1.0-5.0) % Baso % (Auto) 0.1 (0.0-0.5) % Neut # (Auto) 17.67 H (2.00-7.50) K/uL Lymph # (Auto) 0.87 L (1.50-4.00) K/uL [place] # (Auto) 1.32 H (0.20-0.80) K/uL Eos # (Auto) 0.01 L (0.04-0.40) K/uL Baso # (Auto) 0.01 L (0.02-0.10) K/uL Sodium 141 (136-145) mmol/L Potassium 3.2 L D (3.5-5.1) mmol/L Chloride 101 (98-107) mmol/L Carbon Dioxide 25.9 (21.0-32.0) mmol/L Anion Gap 17.3 H (5.0-15.0) mmol/L BUN 53 H* (8-26) mg/dL Creatinine 1.25 H D (0.55-1.02) mg/dL Est Cr Clr Drug Dosing TNP Estimated GFR (MDRD) 42 L (>60) MLS/MIN BUN/Creatinine Ratio 42.4 H (6-25) Glucose 291 H D (74-100) mg/dL Lactic Acid 3.5 H (0.4-2.0) mmol/L Calcium 9.0 (8.5-10.1) mg/dL Magnesium 2.1 (1.8-2.4) mg/dL Total Bilirubin 0.5 D (0.0-1.0) mg/dL AST 39 H (15-37) U/L ALT 30 (12-78) U/L Alkaline Phosphatase 145 H (46-116) U/L Creatine Kinase 31 (21-232) U/L Total Protein 7.3 (6.4-8.2) g/dL Albumin 3.5 (3.4-5.0) g/dL Globulin 3.8 (2.2-4.2) g/dL Albumin/Globulin Ratio 0.9 (0.8-2.0) TSH, Ultra Sensitive (0.358-3.740) uIU/mL Urine Color Urine Appearance (CLEAR) Urine pH (5.0-8.0) Ur Specific [place] (1.003-1.030) Urine Protein (NEGATIVE) mg/dL Urine Glucose (UA) (NEGATIVE) mg/dL Urine Ketones (NEGATIVE) mg/dL Urine Occult Blood (NEGATIVE) Urine Nitrite (NEGATIVE) Urine Bilirubin (NEGATIVE) Urine Urobilinogen (0.2-1.0) E.U./dL Ur Leukocyte Esterase (NEGATIVE) Urine RBC /HPF Urine WBC /HPF Ur Squamous Epith Cells /HPF Urine Bacteria /HPF Urine Opiates Screen (NEGATIVE) Ur Oxycodone Screen (NEGATIVE) Urine Methadone Screen (NEGATIVE) Ur Barbiturates Screen (NEGATIVE) Ur Tricyclics Screen (NEGATIVE) Ur Phencyclidine Scrn (NEGATIVE) Ur Amphetamine Screen (NEGATIVE) U Methamphetamines Scrn (NEGATIVE) Urine MDMA Screen (NEGATIVE) U Benzodiazepines Scrn (NEGATIVE) U Cocaine Metab Screen (NEGATIVE) U Marijuana (THC) Screen (NEGATIVE) 11/28/19 11/29/19 11/29/19 Range/Units 15:30 07:50 07:50 WBC 7.4 D (4.0-11.0) K/uL RBC 4.27 (3.80-5.80) M/uL Hgb 13.1 (11.5-16.5) g/dL Hct 39.5 (37.0-47.0) % MCV 93 (76-96) fL MCH 30.7 (27.0-32.0) pg MCHC 33.2 (31.0-35.0) g/dL RDW 12.8 (11.0-16.0) % Plt Count 228 D (150-500) K/uL MPV 10.6 H (6.0-10.0) fL Neut % (Auto) 67.1 (45.0-70.0) % Lymph % (Auto) 18.2 L (20.0-40.0) % [place] % (Auto) 13.3 H (3.0-10.0) % Eos % (Auto) 1.4 (1.0-5.0) % Baso % (Auto) 0.0 (0.0-0.5) % Neut # (Auto) 4.95 (2.00-7.50) K/uL Lymph # (Auto) 1.34 L (1.50-4.00) K/uL [place] # (Auto) 0.98 H (0.20-0.80) K/uL Eos # (Auto) 0.10 (0.04-0.40) K/uL Baso # (Auto) 0.00 L (0.02-0.10) K/uL Sodium 141 (136-145) mmol/L Potassium 3.6 (3.5-5.1) mmol/L Chloride 104 (98-107) mmol/L Carbon Dioxide 29.6 (21.0-32.0) mmol/L Anion Gap 11.0 (5.0-15.0) mmol/L BUN 41 H D (8-26) mg/dL Creatinine 0.88 D (0.55-1.02) mg/dL Est Cr Clr Drug Dosing TNP Estimated GFR (MDRD) > 60 (>60) MLS/MIN BUN/Creatinine Ratio 46.6 H (6-25) Glucose 107 H D (74-100) mg/dL Lactic Acid (0.4-2.0) mmol/L Calcium 8.6 (8.5-10.1) mg/dL Magnesium 2.2 (1.8-2.4) mg/dL Total Bilirubin 0.3 D (0.0-1.0) mg/dL AST 35 (15-37) U/L ALT 25 (12-78) U/L Alkaline Phosphatase 115 (46-116) U/L Creatine Kinase (21-232) U/L Total Protein 6.2 L (6.4-8.2) g/dL Albumin 2.9 L (3.4-5.0) g/dL Globulin 3.3 (2.2-4.2) g/dL Albumin/Globulin Ratio 0.9 (0.8-2.0) TSH, Ultra Sensitive 0.585 D (0.358-3.740) uIU/mL Urine Color Yellow Urine Appearance Clear (CLEAR) Urine pH 5.5 (5.0-8.0) Ur Specific [place] 1.010 (1.003-1.030) Urine Protein Negative (NEGATIVE) mg/dL Urine Glucose (UA) Negative (NEGATIVE) mg/dL Urine Ketones Negative (NEGATIVE) mg/dL Urine Occult Blood Negative (NEGATIVE) Urine Nitrite Negative (NEGATIVE) Urine Bilirubin Negative (NEGATIVE) Urine Urobilinogen 0.2 (0.2-1.0) E.U./dL Ur Leukocyte Esterase Trace H (NEGATIVE) Urine RBC Not seen /HPF Urine WBC 5-10 H /HPF Ur Squamous Epith Cells Rare /HPF Urine Bacteria Not seen /HPF Urine Opiates Screen (NEGATIVE) Ur Oxycodone Screen (NEGATIVE) Urine Methadone Screen (NEGATIVE) Ur Barbiturates Screen (NEGATIVE) Ur Tricyclics Screen (NEGATIVE) Ur Phencyclidine Scrn (NEGATIVE) Ur Amphetamine Screen (NEGATIVE) U Methamphetamines Scrn (NEGATIVE) Urine MDMA Screen (NEGATIVE) U Benzodiazepines Scrn (NEGATIVE) U Cocaine Metab Screen (NEGATIVE) U Marijuana (THC) Screen (NEGATIVE) 11/29/19 11/29/19 Range/Units 07:50 09:05 WBC (4.0-11.0) K/uL RBC (3.80-5.80) M/uL Hgb (11.5-16.5) g/dL Hct (37.0-47.0) % MCV (76-96) fL MCH (27.0-32.0) pg MCHC (31.0-35.0) g/dL RDW (11.0-16.0) % Plt Count (150-500) K/uL MPV (6.0-10.0) fL Neut % (Auto) (45.0-70.0) % Lymph % (Auto) (20.0-40.0) % [place] % (Auto) (3.0-10.0) % Eos % (Auto) (1.0-5.0) % Baso % (Auto) (0.0-0.5) % Neut # (Auto) (2.00-7.50) K/uL Lymph # (Auto) (1.50-4.00) K/uL [place] # (Auto) (0.20-0.80) K/uL Eos # (Auto) (0.04-0.40) K/uL Baso # (Auto) (0.02-0.10) K/uL Sodium (136-145) mmol/L Potassium (3.5-5.1) mmol/L Chloride (98-107) mmol/L Carbon Dioxide (21.0-32.0) mmol/L Anion Gap (5.0-15.0) mmol/L BUN (8-26) mg/dL Creatinine (0.55-1.02) mg/dL Est Cr Clr Drug Dosing Estimated GFR (MDRD) (>60) MLS/MIN BUN/Creatinine Ratio (6-25) Glucose (74-100) mg/dL Lactic Acid 1.1 (0.4-2.0) mmol/L Calcium (8.5-10.1) mg/dL Magnesium (1.8-2.4) mg/dL Total Bilirubin (0.0-1.0) mg/dL AST (15-37) U/L ALT (12-78) U/L Alkaline Phosphatase (46-116) U/L Creatine Kinase (21-232) U/L Total Protein (6.4-8.2) g/dL Albumin (3.4-5.0) g/dL Globulin (2.2-4.2) g/dL Albumin/Globulin Ratio (0.8-2.0) TSH, Ultra Sensitive (0.358-3.740) uIU/mL Urine Color Urine Appearance (CLEAR) Urine pH (5.0-8.0) Ur Specific [place] (1.003-1.030) Urine Protein (NEGATIVE) mg/dL Urine Glucose (UA) (NEGATIVE) mg/dL Urine Ketones (NEGATIVE) mg/dL Urine Occult Blood (NEGATIVE) Urine Nitrite (NEGATIVE) Urine Bilirubin (NEGATIVE) Urine Urobilinogen (0.2-1.0) E.U./dL Ur Leukocyte Esterase (NEGATIVE) Urine RBC /HPF Urine WBC /HPF Ur Squamous Epith Cells /HPF Urine Bacteria /HPF Urine Opiates Screen Negative (NEGATIVE) Ur Oxycodone Screen Positive H (NEGATIVE) Urine Methadone Screen Negative (NEGATIVE) Ur Barbiturates Screen Negative (NEGATIVE) Ur Tricyclics Screen Negative (NEGATIVE) Ur Phencyclidine Scrn Negative (NEGATIVE) Ur Amphetamine Screen Negative (NEGATIVE) U Methamphetamines Scrn Negative (NEGATIVE) Urine MDMA Screen Negative (NEGATIVE) U Benzodiazepines Scrn Negative (NEGATIVE) U Cocaine Metab Screen Negative (NEGATIVE) U Marijuana (THC) Screen Negative (NEGATIVE) YUNG Results - Last 24 hrs: Microbiology 11/28/19 15:30 Urine Culture - Preliminary Urine, Quick Cath (In-Out) Gram Negative Rods Med Orders - Current: Current Medications Acetaminophen (Tylenol) 650 mg GTUBE Q4HR PRN PRN Reason: Pain Albuterol/Ipratropium (Duoneb 3.0-0.5 Mg/3 Ml) 3 ml INH Q6HR PRN PRN Reason: Shortness of Breath Fentanyl (Duragesic) 100 mcg TOP Q72H [facility] Last Admin: 11/28/19 18:37 Dose: Not Given Sodium Chloride (Normal Saline) 1,000 mls @ 50 mls/hr IV ASDIRECTED [facility] Last Admin: 11/28/19 21:10 Dose: 50 mls/hr Potassium Chloride/Dextrose/Sod Cl (D5 Ns With 20 Meq Kcl) 1,000 mls @ 150 mls/ hr IV ASDIRECTED [facility] Ceftriaxone Sodium 1 gm/ (Sodium Chloride) 50 mls @ 200 mls/hr IV Q24H [facility] Lactulose (Chronulac) 10 gm GTUBE TID [facility] Last Admin: 11/29/19 09:04 Dose: 10 gm Magnesium Hydroxide (Milk Of Magnesia) 30 ml GTUBE DAILY PRN PRN Reason: Constipation Melatonin (Melatonin) 6 mg GTUBE BEDTIME [facility] Last Admin: 11/28/19 20:28 Dose: 6 mg Gabapentin 250 Mg/5 Ml Solution Own Med 0 ml GTUBE BID@0800,1200 [facility] Last Admin: 11/29/19 09:05 Dose: 4 ml Non-Formulary Medication (Mupirocin Cream [Bactroban Crm]) 1 applic TOP TID [facility] Last Admin: 11/29/19 08:51 Dose: 1 applic Gabapentin 250 Mg/5 Ml Solution Own Med 0 ml GTUBE BEDTIME [facility] Last Admin: 11/28/19 20:27 Dose: 8 ml Ropinirole 0.5mg Tab (Own Med) 1 each GTUBE BID [facility] Last Admin: 11/29/19 09:07 Dose: 1 each Omeprazole 10 Mg Oral PacketOwn Med 10 mg GTUBE ACBREAKFAST [facility] Last Admin: 11/29/19 08:47 Dose: 10 mg Fluoxetine Hcl 20 Mg Oral SolutionOwn Med 20 mg GTUBE DAILY [facility] Last Admin: 11/29/19 08:50 Dose: 20 mg Furosemide 10mg/Ml Oral SolutionOwn Med 4 each GTUBE DAILY [facility] Last Admin: 11/29/19 08:55 Dose: 4 each Polyethylene Glycol (Miralax) 17 gm GTUBE DAILY PRN PRN Reason: Constipation Potassium Chloride (Potassium Chloride Solution) 20 meq GTUBE DAILY [facility] Last Admin: 11/29/19 09:07 Dose: 20 meq Senna (Senna) 8.6 mg GTUBE DAILY PRN PRN Reason: Constipation Vitamin A (Vitamin A) 10,000 units GTUBE DAILY [facility] Last Admin: 11/29/19 08:45 Dose: Not Given Wheat Dextrin (Benefiber) 4 gm GTUBE DAILY@1800 [facility] Discontinued Medications Diazepam (Valium) 5 mg IV ONETIME ONE Stop: 11/28/19 13:42 Last Admin: 11/28/19 13:55 Dose: 5 mg Diazepam (Valium) Confirm Administered Dose 5 mg .ROUTE .STK-MED ONE Stop: 11/28/19 13:57 Last Admin: 11/28/19 14:14 Dose: Not Given Furosemide (Lasix) 40 mg GTUBE DAILY [facility] Ceftriaxone Sodium 1 gm/ (Sodium Chloride) 50 mls @ 200 mls/hr IV Q24H [facility] Last Admin: 11/28/19 18:50 Dose: 200 mls/hr Lactulose (Chronulac) 10 gm GTUBE TID [facility] Last Admin: 11/28/19 20:03 Dose: Not Given Non-Formulary Medication (Fluoxetine Hcl [Fluoxetine Hcl]) 20 mg GTUBE DAILY [facility] Non-Formulary Medication (Gabapentin [Gabapentin]) 8 ml GTUBE BEDTIME [facility] Non-Formulary Medication (Guar Gum [Benefiber]) 0.4 gm GTUBE DAILY@1800 [facility] Last Admin: 11/28/19 23:32 Dose: Not Given Non-Formulary Medication (Omeprazole [Omeprazole]) 10 mg GTUBE ACBREAKFAST [facility] Potassium Chloride (Potassium Chloride Solution) 20 meq GTUBE DAILY [facility] Ropinirole HCl (Requip) 2 mg GTUBE TID [facility] Last Admin: 11/28/19 23:32 Dose: Not Given
[2019-11-29 12:22] VITALS: BP 136/81; PULSE 72
[2019-11-29] MEDS ORDERED: cefTRIAXone 1 GM in Sodium Chloride 0.9% 50 ML IV SCH (16:15)
[2019-11-29] MEDS ORDERED: WHEAT DEXTRIN GTUBE SCH (18:00)
== END 2019-11-29 12:45 ==
LOC: LB.ED 13:06 → LB.MS 15:26
PROVIDERS: ADMIT Family Medicine; ATTEND Family Medicine
DX: M62.838 Other muscle spasm (principal); R41.0 Disorientation, unspecified; D72.829 Elevated white blood cell count, unspecified; I13.0 Hypertensive heart and chronic kidney disease with heart failure and stage 1 through stage 4 chronic kidney disease, or unspecified chronic kidney disease; I50.9 Heart failure, unspecified; N18.9 Chronic kidney disease, unspecified; I69.964 Other paralytic syndrome following unspecified cerebrovascular disease affecting left non-dominant side; G82.20 Paraplegia, unspecified; E78.00 Pure hypercholesterolemia, unspecified; J45.909 Unspecified asthma, uncomplicated; K21.9 Gastro-esophageal reflux disease without esophagitis; F32.9 Major depressive disorder, single episode, unspecified; Z91.040 Latex allergy status; Z91.048 Other nonmedicinal substance allergy status; Z79.899 Other long term (current) drug therapy; Z51.5 Encounter for palliative care
CPT/HCPCS: 36415; 51701; 80053; 80307; 81001; 82550; 83605; 83735; 84443; 85025; 87040; 87086; 87088; 87186; 96374; 96375; 99217; 99218; 99285; A9270; G0378; J0696; J3360; J7030; J7050

== ENCOUNTER 2020-08-21 23:02 | Emergency (ER) | payer MEDICARE, MEDICAID ==
[2020-08-22 00:15] VITALS: PULSE 61
[2020-08-22 00:22] VITALS: BP 133/64
--- NOTE | 2020-08-22 20:26 | ER ---
REASON FOR EMERGENCY ROOM VISIT: Chest pain. HISTORY: This 75-year-old woman has a history of CVAs and TIAs as well as paraplegia. She has been a resident of the detention here and has a rather extensive past medical history. The nursing staff noticed that today she has had complaints of discomfort in the lower chest area. She has not had any nausea or vomiting nor she had any fever. She has not had any respiratory symptoms such as wheezing or coughing. She does receive her nutritional support as well as her medications through a gastrostomy tube and she has been maintained. She has required a lot of narcotic analgesics for pain related to musculoskeletal pain, muscular spasms, and so forth. In addition to a fentanyl patch, she has been receiving regular doses of oxycodone through her gastrostomy tube. Her last dose of oxycodone was approximately 4 hours ago. She did receive a dose at that time and continued to have some discomfort in her chest area. She was therefore sent to the emergency room to have this evaluated. PAST MEDICAL HISTORY: Reviewed and includes the followin. History of CVAs and TIAs. 2. Congestive heart failure. 3. Hypertension. 4. Hypercholesterolemia. 5. History of asthma. 6. Recurrent pneumonia. 7. History of constipation, chronic. 8. Chronic renal failure. 9. Gastroesophageal reflux. 10.Gastrostomy tube placement. 11.History of muscle cramping and musculoskeletal spasms. 12.Costochondritis, recurrent. MEDICATIONS: Reviewed and include the following: Ropinirole 2 mg per G-tube t.i.d., polyethylene glycol p.r.n., Duragesic patch (see EMR), vitamins and stool softeners, omeprazole 10 mg per G-tube q.a.m., melatonin p.r.n., gabapentin per G-tube t.i.d. (see EMR), fluoxetine 20 mg per G-tube daily, albuterol and ipratropium (DuoNeb) p.r.n., acetaminophen p.r.n. as well as oxycodone p.r.n. (see EMR). ALLERGIES: SHE IS ALLERGIC TO NO MEDICATIONS, BUT SHE IS ALLERGIC TO LATEX AND ADHESIVE TAPE. SOCIAL HISTORY: She is resident of the nursing home home. It is noteworthy that she has advanced directives indicating a DNI and DNR. REVIEW OF SYSTEMS: Difficult to obtain because she is very difficult to understand and does not speak well. PHYSICAL EXAMINATION: GENERAL: She is reasonably alert and cooperative. She does not appear to be in any distress. She is not diaphoretic. VITAL SIGNS: She is afebrile. Heart rate 63, blood pressure 133/99, respirations 13 to 17, O2 sats 96% to 98%. HEENT: No scleral icterus is noted. Oropharynx appears somewhat dry. NECK: No adenopathy. No JVD is noted. CHEST: Clear to auscultation with no wheezes, rhonchi, or rales. CARDIAC: Regular rate without murmur or rub. ABDOMEN: Obese, soft, and nontender. Her gastrostomy site was noted. No palpable masses. Negative Cifuentes sign. EXTREMITIES: She has some contractures in her upper extremities. She perfuses well with good capillary refill and no cyanosis. NEUROLOGIC: She is reasonably well alert. Difficult to do a neurologic examination, she does have left-sided hemiparesis. Does not move her left arm. IMAGIN-lead EKG does not show any acute changes. Chest x-ray shows no active pulmonary disease. She does seem to have some cardiomegaly. LABORATORY DATA: CBC is normal with no leukocytosis and hemoglobin of 13.0. Her CMP shows that her electrolytes are normal. Her creatinine is 1.2 and a BUN of 45. Her liver enzymes are not elevated. Troponin 1 is less than 0.017. IMPRESSION: Chest pain, difficult to ascertain severity. She is not in any distress at this time. Chest pain does not appear to be cardiopulmonary in origin, negative exam and laboratory studies. This could all be on the basis of gastroesophageal reflux disease, which she does have. PLAN: We will go ahead and add an antacid to her regimen of either Maalox or Mylanta per gastrostomy tube 30 mL every 6 hours. In addition to this, her oxycodone can be given every 4 hours instead of every 6 hours. Should her symptoms worsen in any way, she certainly should be seen and re-evaluated. GILBERT/NASIMA /[id number]
--- NOTE | 2020-08-22 20:35 | CR ---
CLINICAL DATA: CHEST PAIN. AP CHEST, 21 AUGUST 2020: Comparison is made to a prior exam dated 28 November 2018. The patient has taken a poor inspiration. The heart size is within normal limits. There is chronic eventration of the right hemidiaphragm, unchanged from the prior study. There is chronic blunting of the left costophrenic angle, consistent with chronic left pleural effusion or pleural scar. The lungs are otherwise clear. No pneumothorax. Job: [id number] MTDD
== END 2020-08-22 00:40 | disposition home or self-care (01) ==
LOC: LB.ED 23:02
DX: R07.89 Other chest pain (principal); I13.0 Hypertensive heart and chronic kidney disease with heart failure and stage 1 through stage 4 chronic kidney disease, or unspecified chronic kidney disease; I50.9 Heart failure, unspecified; N18.9 Chronic kidney disease, unspecified; K21.9 Gastro-esophageal reflux disease without esophagitis; J45.909 Unspecified asthma, uncomplicated; Z93.1 Gastrostomy status; Z86.73 Personal history of transient ischemic attack (TIA), and cerebral infarction without residual deficits; Z79.899 Other long term (current) drug therapy
CPT/HCPCS: 36415; 71045; 80053; 84484; 85025; 93005; 99285-25